=== PATIENT | male | born 1980 | race African-American/Black ===

== ENCOUNTER 2020-09-10 08:13 | Emergency (ER) | payer SELFPAY ==
[2020-09-10] MEDS ORDERED: Azithromycin 250 MG TAB ONE (08:35)
[2020-09-10] MEDS ORDERED: cefTRIAXone\\ROCEPHIN 250 MG VIAL ONE (08:35)
[2020-09-10] MEDS ORDERED: Lidocaine 1% (PF) 30 ML VIAL ONE (08:36)
[2020-09-10 10:03] LABS: Bilirubin Negative (Negative); Blood, Urine Trace (Negative); Clarity Turbid (Clear); Glucose, Urine (Dipstick) Normal (Negative); Ketone, Urine Negative (Negative); Leukocyte 500 Leu/uL (Negative); Nitrite Negative (Negative); Protein, Urine (Dipstick) Negative (Neg-Trace); RBC/HPF 0-3 HPF (0-3); Specific Gravity, Urine 1.005 (1.002-1.036); Squamous Epithelial None Seen HPF (0-3); Urobilinogen Normal mg/dL (Less than 2); WBC/HPF Greater than 50 HPF (0-3)
[2020-09-10 10:06] LABS: Bacteria/HPF 1+ HPF (None Seen)
[2020-09-12 20:17] LABS: Chlam.trachomatis by PCR,Urine Not Detected (NotDetected)
== END 2020-09-10 10:30 | disposition home or self-care (01) ==
LOC: ERS 08:13
DX: N34.1 Nonspecific urethritis (principal); I10 Essential (primary) hypertension; F32.9 Major depressive disorder, single episode, unspecified; F17.210 Nicotine dependence, cigarettes, uncomplicated
CPT/HCPCS: 81003; 81015; 87491; 87591; 96372; 99283; J0696; J2001

== ENCOUNTER 2021-10-31 16:08 | Emergency (ER) | payer SELFPAY ==
[2021-10-31] MEDS ORDERED: Ondansetron ODT 4 MG TAB ONE (18:01)
[2021-11-01 14:45] LABS: SARS-CoV-2 PCR by NAA Not Detected (NotDetected)
== END 2021-10-31 18:07 | disposition home or self-care (01) ==
LOC: ERS 16:08
DX: R11.2 Nausea with vomiting, unspecified (principal); I10 Essential (primary) hypertension; F17.210 Nicotine dependence, cigarettes, uncomplicated; Z20.822 Contact with and (suspected) exposure to COVID-19
CPT/HCPCS: 99284; Q0162; U0003; U0005

== ENCOUNTER 2024-05-11 21:57 | Emergency (ER) | payer SELFPAY ==
[2024-05-11] MEDS ORDERED: Ibuprofen 800 MG TAB ONE (22:19)
[2024-05-11] MEDS ORDERED: predniSONE 20 MG TAB ONE (23:06)
== END 2024-05-11 23:16 | disposition home or self-care (01) ==
LOC: ERS 21:57
DX: M79.671 Pain in right foot (principal); I10 Essential (primary) hypertension; F17.210 Nicotine dependence, cigarettes, uncomplicated
CPT/HCPCS: J7512

== ENCOUNTER 2024-06-14 11:23 | Emergency (ER) | payer SELFPAY ==
[2024-06-14] MEDS ORDERED: Acetaminophen 325 MG TAB ONE (13:47)
[2024-06-14] MEDS ORDERED: Ibuprofen 200 MG TAB ONE (13:47)
== END 2024-06-14 13:58 | disposition home or self-care (01) ==
LOC: ERS 11:23
DX: M79.672 Pain in left foot (principal); I10 Essential (primary) hypertension; F17.210 Nicotine dependence, cigarettes, uncomplicated
CPT/HCPCS: 99282

== ENCOUNTER 2025-02-12 13:49 | Emergency (ER) | payer SELFPAY ==
[2025-02-12] MEDS ORDERED: Ketorolac Tromethamine 30 MG (1 mL) VIAL ONE (14:35)
== END 2025-02-12 15:14 | disposition home or self-care (01) ==
LOC: ERS 13:49
DX: M25.512 Pain in left shoulder (principal); M54.6 Pain in thoracic spine; I10 Essential (primary) hypertension; F17.210 Nicotine dependence, cigarettes, uncomplicated
CPT/HCPCS: 96372; 99283; J1885